=== PATIENT | male | born 1945 | race Caucasian/White ===

== ENCOUNTER 2025-08-13 21:00 | Observation (INO) ==
[2025-08-13] MEDS: OPTIRAY 320 125ml IV ONE (21:45)
[2025-08-13 21:51] LABS: Hematocrit (blood only) 43.8 % (42.0-52.0); Hemoglobin 15.2 g/dl (14.0-18.0); Immature Granulocytes # (auto) 0.09 K/uL (0.01-0.20); Immature Granulocytes % (auto) 0.5 %; Mean Corpuscular Hemoglobin 30.8 pg (25.0-34.0); Mean Corpuscular Volume 88.8 fL (80.0-100.0); Platelet Count 216 K/uL (130-400); RDW Standard Deviation 43.4 fL (36.4-46.3); Red Blood Count 4.93 M/uL (4.70-6.10); White Blood Count 18.48 K/ul (4.8-10.8)
[2025-08-13 22:09] LABS: Alanine Aminotransferase 20 U/L (7-52); Albumin Globulin Ratio 1.4 (0.9-2); Albumin Level 4.4 gm/dl (3.4-5.0); Alkaline Phosphatase 81 U/L (34-104); Anion Gap 10 (3-11); Bilirubin,Total 1.2 mg/dl (0.2-1.0); Blood Urea Nitrogen 16 mg/dl (6-23); Calcium 9.7 mg/dl (8.6-10.3); Carbon Dioxide 27 mmol/L (21-32); Chloride 101 mmol/L (98-107); Globulin 3.1 gm/dl (2.5-4.0); Glucose 119 mg/dl (70-99(Fasting)); Magnesium 1.9 mg/dl (1.7-2.4); Potassium 3.8 mmol/L (3.5-5.1); Sodium 138 mmol/L (136-145); Total Protein 7.5 gm/dl (6.0-8.3)
[2025-08-13 22:21] LABS: INR 1.2 (0.9-1.1); Partial Thromboplastin Time 28 Seconds (21-31); Prothrombin Time 12.1 Seconds (9.0-12.0)
--- NOTE | 2025-08-13 22:27 | Emergency Department Note ---
Impression & Plan Sepsis, Complicated urinary tract infection, Acute encephalopathy ED Provider Note NAME: JORDYN SAAVGE AGE: 80 SEX: M : 1945 ARRIVES VIA: Walk-In INFORMANT: Patient, family members ED PROVIDER(S): Marques Alvarado DO CHIEF COMPLAINT: confusion, weakness, stroke like symptoms HPI: This is a 80-year-old male with the PMHx of hypertension, hyperlipidemia, cerebrovascular disease, BPH with remote bladder cancer, GERD and obesity presenting to [facility] for further evaluation of strokelike symptoms. Patient is accompanied by and other family members who provide additional history. Family noted that he was weak today. They report that he was having trouble with his speech and organized thought. They report some dysarthria. They also report coordination difficulties. They are concerned for stroke. They deny fever or chills. No cough or congestion. Denies chest pain or palpitations. No shortness of breath. They deny abdominal pain, nausea and vomiting. No urinary complaints. No recent changes in bowel movements. Patient denies recent changes in medications or OTC supplements. Patient offers no other complaints, today. ADDITIONAL HISTORY OBTAINED: Per HPI Chronic Medical/Social Conditions Affecting Care: Per HPI PAST MEDICAL HISTORY: See Below PAST SURGICAL HISTORY: See Below FAMILY HISTORY: See Below SOCIAL HISTORY: See Below HOME MEDICATIONS: See Below ALLERGIES: See Below VITALS: See Below PHYSICAL EXAMINATION: GENERAL: Sitting up in bed, alert, generally ill appearing, well nourished, no distress, non-toxic EYE EXAM: normal conjunctiva. PERRL and EOM's grossly intact. OROPHARYNX: no exudate, no erythema, lips, buccal mucosa, and tongue normal and mucous membranes are moist NECK: supple, no nuchal rigidity, no adenopathy, non-tender LUNGS: Tachypnea. Clear to auscultation. Normal chest wall mechanics HEART: no murmurs, tachycardia rate, regular rhythm ABDOMEN: abdomen soft, non-tender, no masses, no rebound or guarding. BACK: Back is symmetrical on inspection and there is no deformity, no midline tenderness, no CVA tenderness. SKIN: no rashes and no bruising UPPER EXTREMITIES: upper extremities are grossly normal. LOWER EXTREMITIES: No pitting edema. NEURO EXAM: Normal sensorium, GCS 15, normal speech, no gross weakness of arms, no gross weakness of legs (slight weakness in the L, 4/5). No drift. Finger to nose intact. Gross sensation intact. MEDICAL DECISION MAKING: Differential diagnoses includes but not limited to CVA, intracranial hemorrhage, multifactorial encephalopathy, sepsis, complicated UTI, pyelonephritis, pneumonia, viral URI, electrolyte derangements, dehydration In summary, this is a 80 year old male who presented with confusion and weakness with concerns for stroke. Differential as above. Nursing notes and pertinent past medical records reviewed. Vital signs reviewed and the patient is minimally febrile and tachycardic. Patient is tachypneic. Blood pressure stable. History and presentation revealed recent manipulation with urology for screening cystoscopy for remote bladder cancer reviewed documentation from urology that showed reassuring cystoscopy. He now has a fever on arrival and vital signs consistent with sepsis. He is confused intermittently with trouble with word finding. Very minimal left-sided weakness. Family has very concerned about possible stroke and he has numerous risk factors. Physical examination revealed as above. As a result of my initial evaluation, the patient appears to be more acutely encephalopathic rather than focal deficits to suggest stroke. Family significantly concerned about this. Does have multiple risk factors for stroke and will proceed with CTA imaging. Given vital signs, I am concerned for infectious pathology. Recent cystoscopy and there would be concerns for possible infection related to this manipulation. Diagnostics interpreted by me include EKG and cardiac monitoring as listed below: -Cardiac Monitoring: An order was placed for continuous cardiac monitoring. The monitor shows a rate of 70-100s with regular rhythm. -ECG: Normal sinus rhythm at a ventricular rate of 98 bpm. First-degree AV block present. Right bundle branch block present. No significant ST segment changes to suggest STEMI. Patient completed laboratory studies and imaging. CXR independently interpreted by me reveals no evidence of focal consolidation to suggest pna. No large pneumothorax or pleural effusion. No obvious displaced rib fracture. Results independently interpreted by me are leukocytosis present. No electrolyte derangements or kidney dysfunction. Urinalysis appears infected. Negative viral swab. Procalcitonin is normal. CTH independently interpreted by me reveals no evidence of ICH. No significant hydrocephalus. No major skull fractures. CTH does not demonstrate findings to suggest an etiology of the patient's symptoms or presentation, today. CTA imaging did not reveal any acute stroke. Do feel this is likely acute encephalopathy in the setting of sepsis secondary to complicated UTI. The patient was managed with crystalloid resuscitation, antipyretics and broad-spectrum antibiotics with IV cefepime. Ultimately, the decision was made to admit the patient for sepsis secondary to complicated UTI complicated by acute encephalopathy. I discussed the case with the hospitalist service via telephone/TigerText and they are agreeable to admit the patient to their services. Based on the above, including the patient's age, coexisting illnesses, labs, imaging, and exam findings the decision to treat as an inpatient. I discussed the patient with the hospitalist team who recommended admission to their services. They received the medications, treatments, interventions indicated above and their condition remained stable. I discussed my findings with the patient and their family and they understand and agree with the treatment plan. All patient / family questions were answered to their satisfaction. Consults/Care Managements Discussions: Per MDM ER treatment provided: See above Procedures: none Critical Care: None The chart was completed utilizing [employer] Speech voice recognition software. Grammatical errors, random word insertions, pronoun errors, and incomplete sentences are an occasional consequence of this system due to software limitations, ambient noise, and hardware issues. Any formal questions or concerns about the content, text, or information contained within the body of this dictation should be directly addressed to the physician for clarification. Past Med/Surg History Problem List (Updated 08/14/25 @ 16:51 by Marques Alvarado DO) Acute encephalopathy (Acute) Complicated urinary tract infection (Acute) Sepsis (Acute) Acute metabolic encephalopathy BPH w urinary obs/LUTS Sepsis due to urinary tract infection Obesity, morbid, BMI 40.0-49.9 Rib fracture Hypoxia Restrictive lung mechanics due to neuromuscular disease Wheezing Lung crackles Nausea Gastrocnemius tear Abdominal pain, epigastric Encounter for pre-operative examination Lumbar radiculopathy, acute Idiopathic polyneuropathy Cervical myelopathy Hyperreflexia of lower extremity Sensorineural hearing loss (SNHL) of both ears Coronary arteriography abnormal Extraocular muscle weakness of right eye GERD (gastroesophageal reflux disease) Levoscoliosis Scoliosis Severe obstructive sleep apnea Restrictive lung disease inhaler daily Benign localized prostatic hyperplasia with lower urinary tract symptoms (LUTS) Spinal stenosis Arthritis Bladder cancer diagnosed 2013--sx Cerebrovascular disease Dyspnea on exertion RBBB follows with Dr. Duran PAF (paroxysmal atrial fibrillation) Hypercholesterolemia Hypertension Medical History Difficult airway for intubation Bilateral cataracts History of pneumonia Diaphragmatic hernia Prediabetes Hypercholesterolemia Cerebrovascular disease Nasal drainage Scoliosis Restrictive lung disease Lung crackles Hypertension Dyspnea on exertion RBBB (right bundle branch block) History of bladder cancer Rib fracture History of abdominal pain Belching Hearing deficit History of BPH Sleep apnea Atrial fibrillation Osteoarthritis Surgical History History of colonoscopy History of cardiac cath History of surgery History of nasal surgery S/P tooth extraction History of esophagogastroduodenoscopy (EGD) H/O cervical spine surgery History of bladder surgery S/P correction of deviated nasal septum History of carpal tunnel surgery Family History Father Prostate cancer Brother Prostate cancer Other No family history of adverse response to anesthesia Denies family history of Ovarian cancer Myocardial infarction Breast cancer Colorectal cancer Social History Smoking Status: Never smoker Second Hand Exposure: No; Do You Dip or Chew Tobacco: No; Hx Alcohol Use: Yes Alcohol type: hard liquor Alcohol Intake Frequency: 2-3 x/Week Hx Substance Use: No Preferred Language: Maltese Communication Ability: Effective Visual Impairment: No Limitations Hearing Ability: Use of Hearing Aid Textile Stylist Required: No Beliefs That Will Affect Care: None marital status: Current Living Situation: Spouse current occupational status: retired 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 How many Children do You have: 3 Feels Safe at Home: Yes Childhood Exposure to Second-Hand Smoke: No Diet: regular Diet Comment: regular caffeine: Yes during the past year weight has: decreased > 10 lbs Dental Care, Regularly: Yes Physical Activity Frequency: Does not Exercise Seatbelt Use: always Sunscreen Use: Yes Assistive Devices: Cane, CPAP, Glasses and Hearing Aid - Bilateral Allergies Allergies Allergy/AdvReac Type Severity Reaction Status Date / Time amoxicillin [From Augmentin] Allergy Intermediate Total Body Verified 07/29/25 13:22 Rash clavulanic acid Allergy Intermediate Total Body Verified 07/29/25 13:22 Rash Penicillins Allergy Intermediate Total Body Verified 07/29/25 13:22 Rash Home Meds Home Medications Medication Instructions Recorded Confirmed aspirin 81 mg tablet,delayed 81 mg PO HS 11/24/19 08/14/25 release (Adult Low Dose Aspirin) coenzyme Q10 100 mg capsule 100 mg PO BID 11/24/19 08/14/25 multivitamin (Daily Multi-Vitamin 1 tab PO QPM 06/06/20 08/14/25 tablet) cholecalciferol (vitamin D3) 25 25 mcg PO BID 06/13/21 08/14/25 mcg (1,000 unit) capsule esomeprazole magnesium 40 mg 0 mg PO QAM 01/22/23 08/14/25 capsule,delayed release (Nexium) lycopene 10 mg capsule 60 mg PO QPM 01/22/23 08/14/25 ascorbic acid (vitamin C) 1,000 mg 1 g PO HS 02/26/23 08/14/25 tablet triamcinolone acetonide 55 mcg 0 spray intranasal DAILY 07/28/24 08/14/25 nasal spray aerosol (Nasacort) albuterol sulfate 90 mcg/actuation 1 - 2 inh inhalation QID PRN 05/27/25 08/14/25 aerosol inhaler Shortness Of Breath Or Wheezing celecoxib 200 mg capsule 200 mg PO DAILY 05/27/25 08/14/25 famotidine 20 mg tablet (Pepcid) 20 mg PO HS 05/27/25 08/14/25 Previous Rx's Medication Instructions Recorded Mobility scooter #1 ea 08/01/23 ipratropium bromide 42 mcg (0.06 2 spray intranasal TID #15 mL 04/01/24 %) nasal spray Incentive Spirometer #1 ea 11/16/24 oxycodone 5 mg tablet 5 - 10 mg (1 - 2 x 5 mg) PO Q6H 11/25/24 PRN pain #30 tabs atorvastatin 10 mg tablet 10 mg PO HS #90 tabs 12/04/24 hydrochlorothiazide 12.5 mg capsule 12.5 mg PO .COMPLEX #39 caps 02/17/25 nebivolol 5 mg tablet (Bystolic) 5 mg PO QAM #90 tabs 02/17/25 CPAP Machine #1 ea 03/18/25 CPAP Supplies #1 ea 03/18/25 tirzepatide (weight loss) 2.5 2.5 mg (0.5 mL) subcut .weekly #2 06/24/25 mg/0.5 mL subcutaneous pen mL injector (Zepbound) dutasteride 0.5 mg capsule 0.5 mg PO DAILY #90 caps 08/11/25 (Avodart) Results & Data (ED) Vital Signs Vital Signs - 24 hr 08/13/25 21:03 08/13/25 21:15 08/13/25 22:20 Temperature 38.1 C H Temperature Source Temporal Artery Scan Pulse Rate 102 H 96 H Pulse Rate [Apical] 84 Pulse Rhythm [Apical] Regular Pulse Strength [Apical] Normal Respiratory Rate 18 18 Respiratory Effort / Characteristics Non-Labored Spontaneous Non-Labored Spontaneous Respiratory Depth Normal Normal Respiratory Pattern Regular Blood Pressure 126/76 Blood Pressure [Right Arm] 142/86 H Blood Pressure Mean 92 Blood Pressure Mean [Right Arm] 104 Blood Pressure Position [Right Arm] Semi-fowlers Pulse Oximetry 93 92 Oxygen Delivery Method Room Air Room Air Sepsis Recent Fever Within 48 Hours No Sepsis New/Unexplained Change in Mental Status No Sepsis Action Taken by Nursing Physician Notified 08/13/25 23:01 08/14/25 01:00 Temperature Temperature Source Pulse Rate Pulse Rate [Apical] 95 H 83 Pulse Rhythm [Apical] Regular Regular Pulse Strength [Apical] Normal Normal Respiratory Rate 18 18 Respiratory Effort / Characteristics Non-Labored Spontaneous Non-Labored Spontaneous Respiratory Depth Normal Normal Respiratory Pattern Regular Regular Blood Pressure Blood Pressure [Right Arm] 123/53 L 117/62 Blood Pressure Mean Blood Pressure Mean [Right Arm] 76 80 Blood Pressure Position [Right Arm] Semi-fowlers Semi-fowlers Pulse Oximetry 97 95 Oxygen Delivery Method Room Air Room Air Sepsis Recent Fever Within 48 Hours Sepsis New/Unexplained Change in Mental Status Sepsis Action Taken by Nursing Laboratory Data 08/14/25 04:18 08/14/25 04:18 Lab Results 08/13/25 08/13/25 08/13/25 Range/Units 21:22 21:32 21:34 WBC 18.48 H (4.8-10.8) K/ul RBC 4.93 (4.70-6.10) M/uL Hgb 15.2 (14.0-18.0) g/dl POC Hgb 15.6 (14.0-18.0) g/dl Hct 43.8 (42.0-52.0) % POC Hct 46 (42-52) % MCV 88.8 (80.0-100.0) fL MCH 30.8 (25.0-34.0) pg MCHC 34.7 (32.0-36.0) g/dL RDW Std Deviation 43.4 (36.4-46.3) fL RDW Coeff of Darin 13.4 (11.5-14.5) % Plt Count 216 (130-400) K/uL MPV 9.2 L (9.4-12.4) fL Immature Gran % (Auto) 0.5 % Neut % (Auto) 86.2 % Lymph % (Auto) 5.6 % [place] % (Auto) 7.4 % Eos % (Auto) 0.1 % Baso % (Auto) 0.2 % Neut # (Auto) 15.94 H (1.40-6.50) K/uL Lymph # (Auto) 1.03 L (1.20-3.40) K/uL [place] # (Auto) 1.37 H (0.11-0.59) K/uL Eos # (Auto) 0.01 (0.00-0.50) K/uL Baso # (Auto) 0.04 (0.00-0.20) K/uL Immature Gran # (Auto) 0.09 (0.01-0.20) K/uL PT 12.1 H (9.0-12.0) Seconds INR 1.2 H (0.9-1.1) APTT 28 (21-31) Seconds PTT Ratio 1.0 POC Sodium 137 (135-144) mmol/L Sodium 138 (136-145) mmol/L POC Potassium 3.9 (3.3-5.0) mmol/L Potassium 3.8 (3.5-5.1) mmol/L POC Chloride 102 (101-112) mmol/L Chloride 101 (98-107) mmol/L Carbon Dioxide 27 (21-32) mmol/L POC Total CO2 26 (24-31) mmol/L Anion Gap 10 (3-11) POC Anion Gap 14.0 L (16-25) mmol/L POC BUN 16 (7-18) mg/dl BUN 16 (6-23) mg/dl Creatinine 1.05 (0.6-1.4) mg/dl POC Creatinine 1.1 (0.6-1.3) mg/dl Est Cr Clr Drug Dosing Not Reportable eGFR 72.21 BUN/Creatinine Ratio 15.2 (10-20) Glucose 119 H (70-99(Fasting)) mg/dl POC Glucose (other) 119 H (70-99) mg/dl Lactate (0.4-2.0) mmol/L Calcium 9.7 (8.6-10.3) mg/dl POC Ioniz Calcium Josh 1.09 L (1.12-1.32) mmol/l Magnesium 1.9 (1.7-2.4) mg/dl Total Bilirubin 1.2 H (0.2-1.0) mg/dl AST 28 (13-39) U/L ALT 20 (7-52) U/L Alkaline Phosphatase 81 (34-104) U/L Troponin I High Sens 9.5 (0-20) pg/ml Total Protein 7.5 (6.0-8.3) gm/dl Albumin 4.4 (3.4-5.0) gm/dl Globulin 3.1 (2.5-4.0) gm/dl Albumin/Globulin Ratio 1.4 (0.9-2) Procalcitonin 0.15 (0-0.5) ng/ml Urine Color Yellow Urine Appearance Clear (Clear) Urine pH 5.0 (4.5-7.5) Ur Specific Hale 1.020 (1.000-1.030) Urine Protein Trace H (Negative) Urine Glucose (UA) Negative (Negative) Urine Ketones Trace H (Negative) Urine Blood 2+ H (Negative) Urine Nitrite Positive A (Negative) Urine Bilirubin Negative (Negative) Urine Urobilinogen Negative (Negative) Ur Leukocyte Esterase 1+ H (Negative) Urine WBC (Auto) 21-50 H (0-5) /hpf Urine RBC (Auto) 0-2 (0-2) /hpf U Hyaline Cast (Auto) 0-2 (0-2) /lpf U Epithel Cells (Auto) 0-2 (0-2) /hpf Urine Bacteria (Auto) 4+ H (None Seen) Urine Comment Adenovirus (PCR) (NotDetected) B. pertussis DNA (PCR) (NotDetected) B.parapertussis DNA PCR (NotDetected) C. pneumoniae DNA (PCR) (NotDetected) Coronavirus OC43 (PCR) (NotDetected) Coronavirus HKU1 (PCR) (NotDetected) Coronavirus 229E (PCR) (NotDetected) SARS-CoV-2 (PCR) (NotDetected) Coronavirus NL63 (PCR) (NotDetected) Human Metapneumovir PCR (NotDetected) Influenza Type A (PCR) (NotDetected) Influenza Type B (PCR) (NotDetected) M. pneumoniae (PCR) (NotDetected) Parainfluenza 1 (PCR) (NotDetected) Parainfluenza 2 (PCR) (NotDetected) Parainfluenza 3 (PCR) (NotDetected) Parainfluenza 4 (PCR) (NotDetected) RSV (PCR) (NotDetected) Entero/Rhino (PCR) (NotDetected) 08/13/25 08/13/25 Range/Units 22:51 23:04 WBC (4.8-10.8) K/ul RBC (4.70-6.10) M/uL Hgb (14.0-18.0) g/dl POC Hgb (14.0-18.0) g/dl Hct (42.0-52.0) % POC Hct (42-52) % MCV (80.0-100.0) fL MCH (25.0-34.0) pg MCHC (32.0-36.0) g/dL RDW Std Deviation (36.4-46.3) fL RDW Coeff of Darin (11.5-14.5) % Plt Count (130-400) K/uL MPV (9.4-12.4) fL Immature Gran % (Auto) % Neut % (Auto) % Lymph % (Auto) % [place] % (Auto) % Eos % (Auto) % Baso % (Auto) % Neut # (Auto) (1.40-6.50) K/uL Lymph # (Auto) (1.20-3.40) K/uL [place] # (Auto) (0.11-0.59) K/uL Eos # (Auto) (0.00-0.50) K/uL Baso # (Auto) (0.00-0.20) K/uL Immature Gran # (Auto) (0.01-0.20) K/uL PT (9.0-12.0) Seconds INR (0.9-1.1) APTT (21-31) Seconds PTT Ratio POC Sodium (135-144) mmol/L Sodium (136-145) mmol/L POC Potassium (3.3-5.0) mmol/L Potassium (3.5-5.1) mmol/L POC Chloride (101-112) mmol/L Chloride (98-107) mmol/L Carbon Dioxide (21-32) mmol/L POC Total CO2 (24-31) mmol/L Anion Gap (3-11) POC Anion Gap (16-25) mmol/L POC BUN (7-18) mg/dl BUN (6-23) mg/dl Creatinine (0.6-1.4) mg/dl POC Creatinine (0.6-1.3) mg/dl Est Cr Clr Drug Dosing eGFR BUN/Creatinine Ratio (10-20) Glucose (70-99(Fasting)) mg/dl POC Glucose (other) (70-99) mg/dl Lactate 1.6 (0.4-2.0) mmol/L Calcium (8.6-10.3) mg/dl POC Ioniz Calcium Josh (1.12-1.32) mmol/l Magnesium (1.7-2.4) mg/dl Total Bilirubin (0.2-1.0) mg/dl AST (13-39) U/L ALT (7-52) U/L Alkaline Phosphatase (34-104) U/L Troponin I High Sens (0-20) pg/ml Total Protein (6.0-8.3) gm/dl Albumin (3.4-5.0) gm/dl Globulin (2.5-4.0) gm/dl Albumin/Globulin Ratio (0.9-2) Procalcitonin (0-0.5) ng/ml Urine Color Urine Appearance (Clear) Urine pH (4.5-7.5) Ur Specific [place] (1.000-1.030) Urine Protein (Negative) Urine Glucose (UA) (Negative) Urine Ketones (Negative) Urine Blood (Negative) Urine Nitrite (Negative) Urine Bilirubin (Negative) Urine Urobilinogen (Negative) Ur Leukocyte Esterase (Negative) Urine WBC (Auto) (0-5) /hpf Urine RBC (Auto) (0-2) /hpf U Hyaline Cast (Auto) (0-2) /lpf U Epithel Cells (Auto) (0-2) /hpf Urine Bacteria (Auto) (None Seen) Urine Comment Adenovirus (PCR) Not Detected (NotDetected) B. pertussis DNA (PCR) Not Detected (NotDetected) B.parapertussis DNA PCR Not Detected (NotDetected) C. pneumoniae DNA (PCR) Not Detected (NotDetected) Coronavirus OC43 (PCR) Not Detected (NotDetected) Coronavirus HKU1 (PCR) Not Detected (NotDetected) Coronavirus 229E (PCR) Not Detected (NotDetected) SARS-CoV-2 (PCR) Not Detected (NotDetected) Coronavirus NL63 (PCR) Not Detected (NotDetected) Human Metapneumovir PCR Not Detected (NotDetected) Influenza Type A (PCR) Not Detected (NotDetected) Influenza Type B (PCR) Not Detected (NotDetected) M. pneumoniae (PCR) Not Detected (NotDetected) Parainfluenza 1 (PCR) Not Detected (NotDetected) Parainfluenza 2 (PCR) Not Detected (NotDetected) Parainfluenza 3 (PCR) Not Detected (NotDetected) Parainfluenza 4 (PCR) Not Detected (NotDetected) RSV (PCR) Not Detected (NotDetected) Entero/Rhino (PCR) Not Detected (NotDetected) Administered Medications Acetaminophen (Acetaminophen 325 Mg Tab) 650 mg PO Q4H PRN PRN Reason: Pain or Fever Stop: 09/13/25 02:12 Last Admin: 08/14/25 09:50 Dose: 650 mg Documented By: yesenia Celecoxib (Celebrex 200 Mg Cap) 200 mg PO DAILY [facility] Stop: 09/13/25 08:59 Last Admin: 08/14/25 08:20 Dose: 200 mg Documented By: yesenia Finasteride (Finasteride 5 Mg Tab) 5 mg PO DAILY [facility] Stop: 09/13/25 08:59 Last Admin: 08/14/25 08:21 Dose: 5 mg Documented By: yesenia Fluticasone Propionate (Fluticasone Propionate Na Spr 16 Gm Btl) 2 sprays VIDYA DAILY CORNELIA Stop: 09/13/25 08:59 Last Admin: 08/14/25 08:23 Dose: 2 sprays Documented By: yesenia Cefepime HCl (Maxipime 2000mg) 2,000 mg in 20 mls @ 5 mls/min IV Q12H CORNELIA; Protocol Stop: 08/24/25 07:59 Last Admin: 08/14/25 09:50 Dose: 5 mls/min Documented By: yesenia Daptomycin 500 mg/ Syringe 10 mls @ 6 mls/min IV Q24H CORNELIA; Protocol Stop: 08/24/25 09:29 Last Admin: 08/14/25 09:50 Dose: 6 mls/min Documented By: yesenia Ipratropium [place] (Ipratropium [place] Nasal [place] 0.06% 15ml) 2 sprays VIDYA TID CORNELIA Stop: 09/13/25 08:59 Last Admin: 08/14/25 08:24 Dose: 2 sprays Documented By: yesenia Metoprolol Tartrate (Metoprolol Tartrate 25 Mg Tab) 25 mg PO BID CORNELIA Stop: 09/13/25 08:59 Last Admin: 08/14/25 08:20 Dose: 25 mg Documented By: yesenia Pantoprazole Sodium (Pantoprazole 40 Mg Tab) 40 mg PO QAM [facility]IA Stop: 09/13/25 08:59 Last Admin: 08/14/25 08:20 Dose: 40 mg Documented By: yesenia Vitamin D (Cholecalciferol 25 Mcg (1000 Units) Tab) 25 mcg PO BID CORNELIA Stop: 09/13/25 08:59 Last Admin: 08/14/25 08:20 Dose: 25 mcg Documented By: yesenia Discontinued Medications Acetaminophen (Ofirmev) 1,000 mg in 100 mls @ 400 mls/hr IV NOW STA Stop: 08/13/25 22:24 Last Infusion: 08/13/25 23:56 Dose: Infused Documented By: Admin: 08/13/25 22:58 Dose: 400 mls/hr Documented By: IDD Cefepime HCl (Maxipime 2000mg) 2,000 mg in 20 mls @ 5 mls/min IV NOW STA; Protocol Stop: 08/13/25 22:20 Last Admin: 08/13/25 22:58 Dose: 5 mls/min Documented By: IDJanette Lactated Ringer's (Lr) 1,000 mls @ 80 mls/hr IV .[id number] CORNELIA Stop: 08/14/25 09:14 Last Infusion: 08/14/25 11:55 Dose: Infused Documented By: Admin: 08/14/25 04:31 Dose: 80 mls/hr Documented By: IDD Ioversol (Optiray 320 125ml) 118 ml IV ONCE ONE Stop: 08/13/25 21:46 Last Admin: 08/13/25 21:45 Dose: 118 ml Documented By: GES Discharge Plan Visit Data Chief Complaint: TIA Symptoms Stated Complaint: SLIGHT CONFUSION DIFF WALKING DOC REF ED Provider: Marques Alvarado Discharge Problem: Sepsis, Complicated urinary tract infection, Acute encephalopathy Patient Disposition: Admitted As Inpatient Condition: Serious Discharge Instructions Interventions: ED Discharge Assessment Last Done: 08/14/25 02:14
[2025-08-13] MEDS: ACETAMINOPHEN 1,000 MG/100 ML VIAL IV STA (22:58)
[2025-08-13] MEDS: CEFEPIME 2000MG 2,000 MG/20 ML SYR IV STA (22:58)
[2025-08-13 23:36] LABS: Appearance Urine Clear (Clear); Bacteria Urine Automated 4+ (None Seen); Cast Urine Automated 0-2 /lpf (0-2); Epithelial Cell Urine Auto 0-2 /hpf (0-2); Glucose Urine UA Negative (Negative); RBC Urine Automated 0-2 /hpf (0-2); WBC Urine Automated 21-50 /hpf (0-5)
--- NOTE | 2025-08-14 | CT Scan Report ---
Exam(s): CT HEAD Without Contrast EXAM: CT Head Without Intravenous Contrast CLINICAL HISTORY: Reason for exam: neuro deficit, acute stroke suspected. TECHNIQUE: Axial computed tomography images of the head/brain without intravenous contrast. CTDI is 35.79 mGy and DLP is 1193.51 mGy-cm. Automated exposure control was utilized for the study. A dose lowering technique was utilized adhering to the principles of ALARA. COMPARISON: Prior brain MRI from March 13, 2022. FINDINGS: Brain: Unremarkable. No hemorrhage. Mild nonspecific white matter changes. No edema. Ventricles: Moderate ventriculomegaly. Bones/joints: Unremarkable. No acute fracture. Soft tissues: Unremarkable. Sinuses: Moderate obstructive left maxillary sinusitis with mucoperiosteal thickening. No acute sinusitis. Mastoid air cells: Unremarkable as visualized. No mastoid effusion. IMPRESSION: No evidence of acute intracranial pathology. Chronic obstructive left maxillary sinusitis. Recommend ENT consult to evaluate for obstructing lesion. Electronically signed by: Irina Dumont MD 08/13/25 23:59 PM
--- NOTE | 2025-08-14 00:03 | CT Scan Report ---
Exam(s): CTA HEAD With Contrast IV Amt: 119cc opt i320 EXAM: CT Angiography Head With Intravenous Contrast CLINICAL HISTORY: Reason for exam: neuro deficit, acute stroke suspected. TECHNIQUE: Axial computed tomographic angiography images of the head with intravenous contrast. CTDI is 35.79 mGy and DLP is 1193.51 mGy-cm. Automated exposure control was utilized for the study. A dose lowering technique was utilized adhering to the principles of ALARA. MIP reconstructed images were created and reviewed. CONTRAST: Patient received 119cc opt i320 of IV contrast COMPARISON: No relevant prior studies available. FINDINGS: The dural venous sinuses are patent. Right internal carotid artery: No acute findings. Intracranial segment is patent with no significant stenosis. No aneurysm. Right anterior cerebral artery: Unremarkable. No occlusion or significant stenosis. No aneurysm. Right middle cerebral artery: Unremarkable. No occlusion or significant stenosis. No aneurysm. Right posterior cerebral artery: Unremarkable. No occlusion or significant stenosis. No aneurysm. Right vertebral artery: Unremarkable as visualized. Left internal carotid artery: No acute findings. Intracranial segment is patent with no significant stenosis. No aneurysm. Left anterior cerebral artery: Unremarkable. No occlusion or significant stenosis. No aneurysm. Left middle cerebral artery: Unremarkable. No occlusion or significant stenosis. No aneurysm. Left posterior cerebral artery: Unremarkable. No occlusion or significant stenosis. No aneurysm. Left vertebral artery: Unremarkable as visualized. Basilar artery: Unremarkable. No occlusion or significant stenosis. No aneurysm. IMPRESSION: Negative CT angiogram of the head. Electronically signed by: Irina Dumont MD 08/14/25 00:02 AM
--- NOTE | 2025-08-14 00:06 | CT Scan Report ---
Exam(s): CTA NECK With Contrast IV Amt: 119cc opti 320 EXAM: CT Angiography Neck With Intravenous Contrast CLINICAL HISTORY: Reason for exam: neuro deficit, acute stroke suspected. TECHNIQUE: Routine carotid CT angiography protocol was performed with intravenous contrast. NASCET criteria using the distal ICAs for comparison were used for evaluation of stenoses. CTDI is 35.79 mGy and DLP is 1193.51 mGy-cm. Automated exposure control was utilized for the study. A dose lowering technique was utilized adhering to the principles of ALARA. MIP reconstructed images were created and reviewed. CONTRAST: Patient received 119cc opti 320 of IV contrast COMPARISON: None. FINDINGS: VASCULATURE: Ectasia of the ascending aorta measured 31.3 mm in diameter. Right common carotid artery: Unremarkable. No occlusion or significant stenosis. No dissection. Right internal carotid artery: Unremarkable. Extracranial segment is patent with no occlusion or significant stenosis. No dissection. Right external carotid artery: Unremarkable. No occlusion. Right vertebral artery: Unremarkable. No occlusion or significant stenosis. No dissection. Left common carotid artery: Unremarkable. No occlusion or significant stenosis. No dissection. Left internal carotid artery: Unremarkable. Extracranial segment is patent with no occlusion or significant stenosis. No dissection. Left external carotid artery: Unremarkable. No occlusion. Left vertebral artery: Unremarkable. No occlusion or significant stenosis. No dissection. NECK: Bones/joints: Critical spinal canal stenosis at C3-4 and C4-5. No acute fracture. Soft tissues: Prominent cervical lymph nodes. Lung apices: Bronchitis with pneumonitis. CAROTID STENOSIS REFERENCE USING NASCET CRITERIA: % ICA stenosis = (1 - narrowest ICA diameter/diameter of distal cervical ICA) x 100. Mild - <50% stenosis. Moderate - 50-69% stenosis. Severe - 70-94% stenosis. Near occlusion - 95-99% stenosis. Occluded - 100% stenosis. IMPRESSION: Negative CTA neck. Critical spinal canal stenosis at C3-4 and C4-5. Recommend MRI of the cervical spine to evaluate for myelopathy. Electronically signed by: Irina Dumont MD 08/14/25 00:05 AM
[2025-08-14 00:27] LABS: Chlamydia pneumoniae PCR Not Detected (NotDetected); Coronavirus 229E PCR Not Detected (NotDetected); Coronavirus CoV-2 (COVID19)PCR Not Detected (NotDetected); Coronavirus HKU1 PCR Not Detected (NotDetected); Coronavirus NL63 PCR Not Detected (NotDetected); Coronavirus OC43PCR Not Detected (NotDetected); Human Metapneumovirus PCR Not Detected (NotDetected); Parainfluenza Virus 1 PCR Not Detected (NotDetected); Parainfluenza Virus 2 PCR Not Detected (NotDetected); Parainfluenza Virus 3 PCR Not Detected (NotDetected); Parainfluenza Virus 4 PCR Not Detected (NotDetected); Respiratory Syncytial VirusPCR Not Detected (NotDetected); Rhinovirus/Enterovirus PCR Not Detected (NotDetected)
--- NOTE | 2025-08-14 01:09 | History & Physical Report ---
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 The patient presents to the emergency department with complaint of ambulatory dysfunction, difficulty to get up and walk from sitting in chair, generalized fatigue, and concerns regarding urinary problems since he had cystoscopy 2 days ago. Upon arrival to the emergency department, patient was with his , and was found to have temperature of 38.1. Urinalysis was suggestive of infection, BioFire testing was negative, WBC was 18.48 with left shift. Imaging included CT scan of head which showed chronic left maxillary sinusitis, CTA head was negative, and CTA neck was negative however did show spinal canal stenosis at C3-4, C4-5, which patient reports having had surgery in the past. Patient underwent a cystoscopy with Dr. Cancino on 08/11, which was negative for cancer, but was consistent with known diagnosis of BPH with LUTS. Patient reports a known history of left maxillary sinusitis, and reports an upcoming procedure in that area. His is concerned, due to confusion, was that he was having a stroke. His presentation and workup is more consistent with metabolic encephalopathy secondary to urosepsis. [facility]. Sepsis due to urinary tract infection/BPH with LUTS/acute metabolic encephalopathy- Follow urine culture and sensitivity Continue cefepime 2 g IV every 12 hours, begun in the ED Patient underwent cystoscopy on 08/11/confirming diagnosis of BPH with LUTS and no signs of cancer. Continue dutasteride or substitute daily LR at 80 mL/h x 500 mL. Trying to balance the volume of intake with his significant urinary retention, and desire to not have a Carpenter catheter. Respiratory BioFire testing negative Chest x-ray negative CT scan head with known left maxillary sinusitis, with upcoming outpatient procedure per patient CTA head negative CTA neck reveals known cervical spinal canal stenosis Hypertension- Will continue aspirin Will hold hydrochlorothiazide Will change Nebivolol to metoprolol tartrate per formulary interchange GERD- Continue famotidine at bedtime, and continue pantoprazole in place of Nexium Hyperlipidemia- Continue atorvastatin Chronic pain syndrome- Acetaminophen 650 mg by mouth every 6 hours as needed for mild pain or fever Oxycodone 5 mg by mouth every 6 hours as needed for moderate pain Weight management- Patient is on tirzepatide SQ weekly as outpatient Severe LORETO- Continue CPAP 18.5 cm at bedtime History of Present Illness Chief Complaint: The patient presents to the emergency department with complaint of ambulatory dysfunction, difficulty to get up and walk from sitting in chair, generalized fatigue, and concerns regarding urinary problems since he had cystoscopy 2 days ago. Upon arrival to the emergency department, patient was with his , and was found to have temperature of 38.1. Urinalysis was suggestive of infection, BioFire testing was negative, WBC was 18.48 with left shift. Imaging included CT scan of head which showed chronic left maxillary sinusitis, CTA head was negative, and CTA neck was negative however did show spinal canal stenosis at C3-4, C4-5, which patient reports having had surgery in the past. 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 The patient presents to the emergency department with complaint of ambulatory dysfunction, difficulty to get up and walk from sitting in chair, generalized fatigue, and concerns regarding urinary problems since he had cystoscopy 2 days ago. Upon arrival to the emergency department, patient was with his , and was found to have temperature of 38.1. Urinalysis was suggestive of infection, BioFire testing was negative, WBC was 18.48 with left shift. Imaging included CT scan of head which showed chronic left maxillary sinusitis, CTA head was negative, and CTA neck was negative however did show spinal canal stenosis at C3-4, C4-5, which patient reports having had surgery in the past. Patient underwent a cystoscopy with Dr. Cancino on 08/11, which was negative for cancer, but was consistent with known diagnosis of BPH with LUTS. Patient reports a known history of left maxillary sinusitis, and reports an upcoming procedure in that area. His is concerned, due to confusion, was that he was having a stroke. His presentation and workup is more consistent with metabolic encephalopathy secondary to urosepsis. The patient was [facility]. Allergies Allergy/AdvReac Type Severity Reaction Status Date / Time amoxicillin [From Augmentin] Allergy Intermediate Total Body Verified 07/29/25 13:22 Rash clavulanic acid Allergy Intermediate Total Body Verified 07/29/25 13:22 Rash Penicillins Allergy Intermediate Total Body Verified 07/29/25 13:22 Rash Home Medications Medication Instructions Recorded Confirmed Type aspirin 81 mg tablet,delayed 81 mg PO HS 11/24/19 07/29/25 History release (Adult Low Dose Aspirin) coenzyme Q10 100 mg capsule 100 mg PO BID 11/24/19 07/29/25 History multivitamin (Daily Multi-Vitamin 1 tab PO QPM 06/06/20 07/29/25 History tablet) cholecalciferol (vitamin D3) 25 25 mcg PO BID 06/13/21 07/29/25 History mcg (1,000 unit) capsule esomeprazole magnesium 40 mg 40 mg PO QAM 01/22/23 07/29/25 History capsule,delayed release (Nexium) lycopene 10 mg capsule 60 mg PO QPM 01/22/23 07/29/25 History ascorbic acid (vitamin C) 1,000 mg 1 g PO HS 02/26/23 07/29/25 History tablet Mobility scooter #1 ea 08/01/23 07/29/25 Rx ipratropium bromide 42 mcg (0.06 2 spray intranasal TID #15 mL 04/01/24 07/29/25 Rx %) nasal spray triamcinolone acetonide 55 mcg 1 spray intranasal DAILY 07/28/24 07/29/25 History nasal spray aerosol (Nasacort) Incentive Spirometer #1 ea 11/16/24 07/29/25 Rx oxycodone 5 mg tablet 5 - 10 mg (1 - 2 x 5 mg) PO Q6H 11/25/24 07/29/25 Rx PRN pain #30 tabs atorvastatin 10 mg tablet 10 mg PO HS #90 tabs 12/04/24 07/29/25 Rx hydrochlorothiazide 12.5 mg capsule 12.5 mg PO .COMPLEX #39 caps 02/17/25 07/29/25 Rx nebivolol 5 mg tablet (Bystolic) 5 mg PO QAM #90 tabs 02/17/25 07/29/25 Rx CPAP Machine #1 ea 03/18/25 07/29/25 Rx CPAP Supplies #1 ea 03/18/25 07/29/25 Rx albuterol sulfate 90 mcg/actuation 1 - 2 inh inhalation QID PRN 05/27/25 07/29/25 History aerosol inhaler Shortness Of Breath Or Wheezing celecoxib 200 mg capsule 200 mg PO DAILY 05/27/25 07/29/25 History famotidine 20 mg tablet (Pepcid) 20 mg PO HS 05/27/25 07/29/25 History tirzepatide (weight loss) 2.5 2.5 mg (0.5 mL) subcut .weekly #2 06/24/25 07/29/25 Rx mg/0.5 mL subcutaneous pen mL injector (Zepbound) dutasteride 0.5 mg capsule 0.5 mg PO DAILY #90 caps 08/11/25 08/11/25 Rx (Avodart) Past Med/Surg History Problem List (Updated 08/14/25 @ 02:52 by Billy Douglass MD) Acute metabolic encephalopathy BPH w urinary obs/LUTS Sepsis due to urinary tract infection Obesity, morbid, BMI 40.0-49.9 Rib fracture Hypoxia Restrictive lung mechanics due to neuromuscular disease Wheezing Lung crackles Nausea Gastrocnemius tear Abdominal pain, epigastric Encounter for pre-operative examination Lumbar radiculopathy, acute Idiopathic polyneuropathy Cervical myelopathy Hyperreflexia of lower extremity Sensorineural hearing loss (SNHL) of both ears Coronary arteriography abnormal Extraocular muscle weakness of right eye GERD (gastroesophageal reflux disease) Levoscoliosis Scoliosis Severe obstructive sleep apnea Restrictive lung disease inhaler daily Benign localized prostatic hyperplasia with lower urinary tract symptoms (LUTS) Spinal stenosis Arthritis Bladder cancer diagnosed 2013--sx Cerebrovascular disease Dyspnea on exertion RBBB follows with Dr. Duran PAF (paroxysmal atrial fibrillation) Hypercholesterolemia Hypertension Medical History Difficult airway for intubation Bilateral cataracts History of pneumonia Diaphragmatic hernia Prediabetes Hypercholesterolemia Cerebrovascular disease Nasal drainage Scoliosis Restrictive lung disease Lung crackles Hypertension Dyspnea on exertion RBBB (right bundle branch block) History of bladder cancer Rib fracture History of abdominal pain Belching Hearing deficit History of BPH Sleep apnea Atrial fibrillation Osteoarthritis Surgical History History of colonoscopy History of cardiac cath History of surgery History of nasal surgery S/P tooth extraction History of esophagogastroduodenoscopy (EGD) H/O cervical spine surgery History of bladder surgery S/P correction of deviated nasal septum History of carpal tunnel surgery Family History Father Prostate cancer Brother Prostate cancer Other No family history of adverse response to anesthesia Denies family history of Ovarian cancer Myocardial infarction Breast cancer Colorectal cancer Social History Smoking Status: Never smoker Second Hand Exposure: No; Do You Dip or Chew Tobacco: No; Hx Alcohol Use: Yes Alcohol type: hard liquor Alcohol Intake Frequency: 2-3 x/Week Hx Substance Use: No Preferred Language: Bangladeshi Communication Ability: Effective Visual Impairment: No Limitations Hearing Ability: Use of Hearing Aid [place] Required: No Beliefs That Will Affect Care: None marital status: Current Living Situation: Spouse current occupational status: retired 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 How many Children do You have: 3 Feels Safe at Home: Yes Childhood Exposure to Second-Hand Smoke: No Diet: regular Diet Comment: regular caffeine: Yes during the past year weight has: decreased > 10 lbs Dental Care, Regularly: Yes Physical Activity Frequency: Does not Exercise Seatbelt Use: always Sunscreen Use: Yes Assistive Devices: Cane, CPAP, Glasses and Hearing Aid - Bilateral Review of Systems Review of Systems: The patient denies chest pain, palpitations, shortness of breath, dyspnea on exertion, cough, lower extremity swelling, sore throat, fevers, chills, sweats, nausea, vomiting, diarrhea , constipation, abdominal pain, pelvic pain, blood in urine or stool, lightheadedness, dizziness, headache, loss of conscio usness, rash, abnormal bruising or bleeding, focal weakness, numbness or tingling in arms or legs, generalized arthralgias or myalgias, back or neck pain, or night sweats. The review of systems is otherwise negative other than for that already noted above, and at least 10 systems have been reviewed. Physical Exam Physical Exam: The patient is awake, alert and oriented 3, well developed and well nourished, normocephalic and atraumatic, lying in bed and in no acute distress. HEENT--PERRL, EOMI, mucous membranes and oropharynx mildly dry. Neck--supple. No JVD. No bruits. Thyroid normal, trachea midline, no adenopathy. Heart--normal S1 and S2. No murmurs, rubs or gallops. Lungs--clear bilaterally, no respiratory distress, no accessory muscle use. Abdomen--normal bowel sounds and soft. Nontender. Nondistended. Obese Extremities--no cyanosis or clubbing. No edema. There are good distal pulses b/l. Dermatologic--normal skin turgor, normal color, no abnormal lymph nodes, no rash. Neurologic--cranial nerves II through XII grossly intact. Rheumatologic--normal range of motion. Psychiatric--normal affect. Results & Data Results & Data Vital Signs (Past 12 Hours) Vital Signs Temp Pulse Pulse Resp BP BP Pulse Ox 08/13/25 23:01 95 H 18 123/53 L 97 08/13/25 22:20 96 H 08/13/25 21:15 84 18 142/86 H 92 08/13/25 21:03 38.1 C H 102 H 18 126/76 93 O2 Del Method 08/13/25 23:01 Room Air 08/13/25 22:20 08/13/25 21:15 Room Air 08/13/25 21:03 Room Air Laboratory Results Laboratory Results WBC 18.48 K/ul (4.8-10.8) H 08/13/25 21:22 RBC 4.93 M/uL (4.70-6.10) 08/13/25 21:22 Hgb 15.2 g/dl (14.0-18.0) 08/13/25 21:22 POC Hgb 15.6 g/dl (14.0-18.0) 08/13/25 21:34 Hct 43.8 % (42.0-52.0) 08/13/25 21: POC Hct 46 % (42-52) 08/13/25 21: MCV 88.8 fL (80.0-100.0) 08/13/25 21: MCH 30.8 pg (25.0-34.0) 08/13/25 21: MCHC 34.7 g/dL (32.0-36.0) 08/13/25 21: RDW Std Deviation 43.4 fL (36.4-46.3) 08/13/25: RDW Coeff of Darin 13.4 % (11.5-14.5) 08/13/25 21: Plt Count 216 K/uL (130-400) 08/13/25 21: MPV 9.2 fL (9.4-12.4) L 08/13/25 21: Immature Gran % (Auto) 0.5 % 08/13/25 21: Neut % (Auto) 86.2 % 08/13/25 21: Lymph % (Auto) 5.6 % 08/13/25 21: [place] % (Auto) 7.4 % 08/13/25 21: Eos % (Auto) 0.1 % 08/13/25 21: Baso % (Auto) 0.2 % 08/13/25: Neut # (Auto) 15.94 K/uL (1.40-6.50) H 08/13/25 21:22 Lymph # (Auto) 1.03 K/uL (1.20-3.40) L 08/13/25 21: [place] # (Auto) 1.37 K/uL (0.11-0.59) H 08/13/25 21:22 Eos # (Auto) 0.01 K/uL (0.00-0.50) 08/13/25 21: Baso # (Auto) 0.04 K/uL (0.00-0.20) 08/13/25 21: Immature Gran # (Auto) 0.09 K/uL (0.01-0.20) 08/13/25 21: PT 12.1 Seconds (9.0-12.0) H 08/13/25 21: INR 1.2 (0.9-1.1) H 08/13/25 21:22 APTT 28 Seconds (21-31) 08/13/25 21: PTT Ratio 1.0 08/13/25 21:22 POC Sodium 137 mmol/L (135-144) 08/13/25 21:34 Sodium 138 mmol/L (136-145) 08/13/25 21:22 POC Potassium 3.9 mmol/L (3.3-5.0) 08/13/25 21:34 Potassium 3.8 mmol/L (3.5-5.1) 08/13/25 21:22 POC Chloride 102 mmol/L (101-112) 08/13/25 21:34 Chloride 101 mmol/L (98-107) 08/13/25 21:22 Carbon Dioxide 27 mmol/L (21-32) 08/13/25 21:22 POC Total CO2 26 mmol/L (24-31) 08/13/25 21:34 Anion Gap 10 (3-11) 08/13/25 21:22 POC Anion Gap 14.0 mmol/L (16-25) L 08/13/25 21:34 POC BUN 16 mg/dl (7-18) 08/13/25 21:34 BUN 16 mg/dl (6-23) 08/13/25 21:22 Creatinine 1.05 mg/dl (0.6-1.4) 08/13/25 21:22 POC Creatinine 1.1 mg/dl (0.6-1.3) 08/13/25 21:34 Est Cr Clr Drug Dosing Not Reportable 08/13/25 21:22 eGFR 72.21 08/13/25 21:22 BUN/Creatinine Ratio 15.2 (10-20) 08/13/25 21:22 Glucose 119 mg/dl (70-99(Fasting)) H 08/13/25 21:22 POC Glucose (other) 119 mg/dl (70-99) H 08/13/25 21:34 Lactate 1.6 mmol/L (0.4-2.0) 08/13/25 22:51 Calcium 9.7 mg/dl (8.6-10.3) 08/13/25 21:22 POC Ioniz Calcium Josh 1.09 mmol/l (1.12-1.32) L 08/13/25 21:34 Magnesium 1.9 mg/dl (1.7-2.4) 08/13/25 21: Total Bilirubin 1.2 mg/dl (0.2-1.0) H 08/13/25 21: AST 28 U/L (13-39) 08/13/25 21: ALT 20 U/L (7-52) 08/13/25 21:22 Alkaline Phosphatase 81 U/L (34-104) 08/13/25 21: Troponin I High Sens 9.5 pg/ml (0-20) 08/13/25 21: Total Protein 7.5 gm/dl (6.0-8.3) 08/13/25 21: Albumin 4.4 gm/dl (3.4-5.0) 08/13/25: Globulin 3.1 gm/dl (2.5-4.0) 08/13/25 21: Albumin/Globulin Ratio 1.4 (0.9-2) 08/13/25 21: Procalcitonin 0.15 ng/ml (0-0.5) 08/13/25: Urine Color Yellow 08/13/25 21: Urine Appearance Clear (Clear) 08/13/25 21: Urine pH 5.0 (4.5-7.5) 08/13/25 21: Ur Specific [place] 1.020 (1.000-1.030) 08/13/25 21: Urine Protein Trace (Negative) H 08/13/25 21: Urine Glucose (UA) Negative (Negative) 08/13/25 21: Urine Ketones Trace (Negative) H 08/13/25: Urine Blood 2+ (Negative) H 08/13/25 21: Urine Nitrite Positive (Negative) A 08/13/25 21: Urine Bilirubin Negative (Negative) 08/13/25 21: Urine Urobilinogen Negative (Negative) 08/13/25 21: Ur Leukocyte Esterase 1+ (Negative) H 08/13/25 21: Urine WBC (Auto) 21-50 /hpf (0-5) H 08/13/25 21:32 Urine RBC (Auto) 0-2 /hpf (0-2) 08/13/25 21: U Hyaline Cast (Auto) 0-2 /lpf (0-2) 08/13/25 21:32 U Epithel Cells (Auto) 0-2 /hpf (0-2) 08/13/25 21:32 Urine Bacteria (Auto) 4+ (None Seen) H 08/13/25 21:32 Urine Comment 08/13/25 21:32 Adenovirus (PCR) Not Detected (NotDetected) 08/13/25 23:04 B. pertussis DNA (PCR) Not Detected (NotDetected) 08/13/25 23:04 B.parapertussis DNA PCR Not Detected (NotDetected) 08/13/25 23:04 C. pneumoniae DNA (PCR) Not Detected (NotDetected) 08/13/25 23:04 Coronavirus OC43 (PCR) Not Detected (NotDetected) 08/13/25 23:04 Coronavirus HKU1 (PCR) Not Detected (NotDetected) 08/13/25 23:04 Coronavirus 229E (PCR) Not Detected (NotDetected) 08/13/25 23:04 SARS-CoV-2 (PCR) Not Detected (NotDetected) 08/13/25 23:04 Coronavirus NL63 (PCR) Not Detected (NotDetected) 08/13/25 23:04 Human Metapneumovir PCR Not Detected (NotDetected) 08/13/25 23:04 Influenza Type A (PCR) Not Detected (NotDetected) 08/13/25 23:04 Influenza Type B (PCR) Not Detected (NotDetected) 08/13/25 23:04 M. pneumoniae (PCR) Not Detected (NotDetected) 08/13/25 23:04 Parainfluenza 1 (PCR) Not Detected (NotDetected) 08/13/25 23:04 Parainfluenza 2 (PCR) Not Detected (NotDetected) 08/13/25 23:04 Parainfluenza 3 (PCR) Not Detected (NotDetected) 08/13/25 23:04 Parainfluenza 4 (PCR) Not Detected (NotDetected) 08/13/25 23:04 RSV (PCR) Not Detected (NotDetected) 08/13/25 23:04 Entero/Rhino (PCR) Not Detected (NotDetected) 08/13/25 23:[address] 08/13/25 21:23 Exam(s): CT HEAD Without Contrast EXAM: CT Head Without Intravenous Contrast CLINICAL HISTORY: Reason for exam: neuro deficit, acute stroke suspected. TECHNIQUE: Axial computed tomography images of the head/brain without intravenous contrast. CTDI is 35.79 mGy and DLP is 1193.51 mGy-cm. Automated exposure control was utilized for the study. A dose lowering technique was utilized adhering to the principles of ALARA. COMPARISON: Prior brain MRI from March 13, 2022. FINDINGS: Brain: Unremarkable. No hemorrhage. Mild nonspecific white matter changes. No edema. Ventricles: Moderate ventriculomegaly. Bones/joints: Unremarkable. No acute fracture. Soft tissues: Unremarkable. Sinuses: Moderate obstructive left maxillary sinusitis with mucoperiosteal thickening. No acute sinusitis. Mastoid air cells: Unremarkable as visualized. No mastoid effusion. IMPRESSION: No evidence of acute intracranial pathology. Chronic obstructive left maxillary sinusitis. Recommend ENT consult to evaluate for obstructing lesion. Electronically signed by: Irina Dumont MD 08/13/25 23:59 PM Head CTA 08/13/25 21:23 Exam(s): CTA HEAD With Contrast IV Amt: 119cc opt i320 EXAM: CT Angiography Head With Intravenous Contrast CLINICAL HISTORY: Reason for exam: neuro deficit, acute stroke suspected. TECHNIQUE: Axial computed tomographic angiography images of the head with intravenous contrast. CTDI is 35.79 mGy and DLP is 1193.51 mGy-cm. Automated exposure control was utilized for the study. A dose lowering technique was utilized adhering to the principles of ALARA. MIP reconstructed images were created and reviewed. CONTRAST: Patient received 119cc opt i320 of IV contrast COMPARISON: No relevant prior studies available. FINDINGS: The dural venous sinuses are patent. Right internal carotid artery: No acute findings. Intracranial segment is patent with no significant stenosis. No aneurysm. Right anterior cerebral artery: Unremarkable. No occlusion or significant stenosis. No aneurysm. Right middle cerebral artery: Unremarkable. No occlusion or significant stenosis. No aneurysm. Right posterior cerebral artery: Unremarkable. No occlusion or significant stenosis. No aneurysm. Right vertebral artery: Unremarkable as visualized. Left internal carotid artery: No acute findings. Intracranial segment is patent with no significant stenosis. No aneurysm. Left anterior cerebral artery: Unremarkable. No occlusion or significant stenosis. No aneurysm. Left middle cerebral artery: Unremarkable. No occlusion or significant stenosis. No aneurysm. Left posterior cerebral artery: Unremarkable. No occlusion or significant stenosis. No aneurysm. Left vertebral artery: Unremarkable as visualized. Basilar artery: Unremarkable. No occlusion or significant stenosis. No aneurysm. IMPRESSION: Negative CT angiogram of the head. Electronically signed by: Irina Dumont MD 08/14/25 00:02 AM Neck CTA 08/13/25 21:23 Exam(s): CTA NECK With Contrast IV Amt: 119cc opti 320 EXAM: CT Angiography Neck With Intravenous Contrast CLINICAL HISTORY: Reason for exam: neuro deficit, acute stroke suspected. TECHNIQUE: Routine carotid CT angiography protocol was performed with intravenous contrast. NASCET criteria using the distal ICAs for comparison were used for evaluation of stenoses. CTDI is 35.79 mGy and DLP is 1193.51 mGy-cm. Automated exposure control was utilized for the study. A dose lowering technique was utilized adhering to the principles of ALARA. MIP reconstructed images were created and reviewed. CONTRAST: Patient received 119cc opti 320 of IV contrast COMPARISON: None. FINDINGS: VASCULATURE: Ectasia of the ascending aorta measured 31.3 mm in diameter. Right common carotid artery: Unremarkable. No occlusion or significant stenosis. No dissection. Right internal carotid artery: Unremarkable. Extracranial segment is patent with no occlusion or significant stenosis. No dissection. Right external carotid artery: Unremarkable. No occlusion. Right vertebral artery: Unremarkable. No occlusion or significant stenosis. No dissection. Left common carotid artery: Unremarkable. No occlusion or significant stenosis. No dissection. Left internal carotid artery: Unremarkable. Extracranial segment is patent with no occlusion or significant stenosis. No dissection. Left external carotid artery: Unremarkable. No occlusion. Left vertebral artery: Unremarkable. No occlusion or significant stenosis. No dissection. NECK: Bones/joints: Critical spinal canal stenosis at C3-4 and C4-5. No acute fracture. Soft tissues: Prominent cervical lymph nodes. Lung apices: Bronchitis with pneumonitis. CAROTID STENOSIS REFERENCE USING NASCET CRITERIA: % ICA stenosis = (1 - narrowest ICA diameter/diameter of distal cervical ICA) x 100. Mild - <50% stenosis. Moderate - 50-69% stenosis. Severe - 70-94% stenosis. Near occlusion - 95-99% stenosis. Occluded - 100% stenosis. IMPRESSION: Negative CTA neck. Critical spinal canal stenosis at C3-4 and C4-5. Recommend MRI of the cervical spine to evaluate for myelopathy. Electronically signed by: Irina Dumont MD 08/14/25 00:05 AM Chest X-Ray 08/13/25 22:09 Exam(s): XR CXR 2 VIEWS EXAM: XR Chest, 2 Views CLINICAL HISTORY: eval for pna. TECHNIQUE: Frontal and lateral views of the chest. COMPARISON: Portable chest two views 11/18/2024 FINDINGS: Lungs: The pulmonary vasculature is equalized and more prominent from the previous examination suggesting underlying vascular congestion. No definite focal airspace consolidation, accounting for limitations with overlying prominent soft tissues of the left lung base. Pleural space: Unremarkable. No pneumothorax. No large pleural effusion. Heart: The cardiac silhouette is stable in appearance and is presumed accentuated by prominent overlying soft tissues. Mediastinum: The mediastinal contours are stable, accounting for lordotic technique. The trachea is midline. Bones/joints: Unremarkable. No acute fracture. IMPRESSION: The pulmonary vasculature is equalized and more prominent from the previous examination suggesting underlying vascular congestion. No definite focal airspace consolidation, accounting for limitations with overlying prominent soft tissues of the left lung base. No pleural effusion or pneumothorax. Electronically signed by: Michelet Weinstein MD 08/14/25 01:40 AM Code Status & VTE Plan Code Status Full code VTE Prophylaxis Plan VTE Prophylaxis will be ordered: Yes PG Care Time/CCT Total # of Minutes Spent Total Time Spent with Patient: Total time spent is greater than 50% in coordination of care (as documented) at patient's floor/unit and/or counseling patient: Coding Level of Care Code 42321 INT INP/OBS CARE 3/75MIN Diagnoses Sepsis due to urinary tract infection A41.9; N39.0 BPH w urinary obs/LUTS N40.1; N13.8 Acute metabolic encephalopathy G93.41
--- NOTE | 2025-08-14 01:41 | XRay Report ---
Exam(s): XR CXR 2 VIEWS EXAM: XR Chest, 2 Views CLINICAL HISTORY: eval for pna. TECHNIQUE: Frontal and lateral views of the chest. COMPARISON: Portable chest two views 11/18/2024 FINDINGS: Lungs: The pulmonary vasculature is equalized and more prominent from the previous examination suggesting underlying vascular congestion. No definite focal airspace consolidation, accounting for limitations with overlying prominent soft tissues of the left lung base. Pleural space: Unremarkable. No pneumothorax. No large pleural effusion. Heart: The cardiac silhouette is stable in appearance and is presumed accentuated by prominent overlying soft tissues. Mediastinum: The mediastinal contours are stable, accounting for lordotic technique. The trachea is midline. Bones/joints: Unremarkable. No acute fracture. IMPRESSION: The pulmonary vasculature is equalized and more prominent from the previous examination suggesting underlying vascular congestion. No definite focal airspace consolidation, accounting for limitations with overlying prominent soft tissues of the left lung base. No pleural effusion or pneumothorax. Electronically signed by: Michelet Weinstein MD 08/14/25 01:40 AM
[2025-08-14] MEDS ORDERED: ALBUTEROL HFA 8 GM INHALER INH PRN (02:13)
[2025-08-14] MEDS: LACTATED RINGER'S 1,000 ML IV SCH (04:31)
[2025-08-14 04:40] LABS: Hematocrit (blood only) 42.5 % (42.0-52.0); Hemoglobin 14.8 g/dl (14.0-18.0); Immature Granulocytes # (auto) 0.07 K/uL (0.01-0.20); Immature Granulocytes % (auto) 0.4 %; Mean Corpuscular Hemoglobin 30.9 pg (25.0-34.0); Mean Corpuscular Volume 88.7 fL (80.0-100.0); Platelet Count 205 K/uL (130-400); RDW Standard Deviation 43.8 fL (36.4-46.3); Red Blood Count 4.79 M/uL (4.70-6.10); White Blood Count 17.81 K/ul (4.8-10.8)
[2025-08-14 04:57] LABS: Albumin Level 4.3 gm/dl (3.4-5.0); Anion Gap 8.0 (3-11); Blood Urea Nitrogen 14.0 mg/dl (6-23); Calcium 9.4 mg/dl (8.6-10.3); Carbon Dioxide 29.0 mmol/L (21-32); Chloride 100.0 mmol/L (98-107); Creatinine Clr Calc Pharmacy 64.1 ml/min; Glucose 106.0 mg/dl (70-99(Fasting)); Potassium 3.6 mmol/L (3.5-5.1); Sodium 137.0 mmol/L (136-145)
[2025-08-14] MEDS: CHOLECALCIFEROL 25 MCG (1000 UNITS) TAB PO SCH (08:20)
[2025-08-14] MEDS: METOPROLOL TARTRATE 25 MG TAB PO SCH (08:20)
[2025-08-14] MEDS: CeleBREX 200 MG CAP PO SCH (08:20)
[2025-08-14] MEDS: FINASTERIDE 5 MG TAB PO SCH (08:21)
[2025-08-14] MEDS: FLUTICASONE PROPIONATE NA SPR 16 GM BTL NAE SCH (08:23)
[2025-08-14] MEDS: IPRATROPIUM BROMIDE NASAL SPRAY 0.06% 15ML NAE SCH (08:24)
[2025-08-14] MEDS: ACETAMINOPHEN 325 MG TAB PO PRN (09:50)
[2025-08-14] MEDS: DAPTOmycin 500 MG in SYRINGE 0 ML IV SCH (09:50)
[2025-08-14] MEDS: CEFEPIME 2000MG 2,000 MG/20 ML SYR IV SCH (09:50)
[2025-08-14] MEDS ORDERED: NON-FORMULARY MEDICATION (Lycopene 10 mg capsule) PO SCH (21:00)
[2025-08-14] MEDS: ASCORBIC ACID 500 MG TAB PO SCH (21:00)
[2025-08-14] MEDS: ASPIRIN 81 MG ECTAB PO SCH (21:00)
[2025-08-14] MEDS ORDERED: ATORVASTATIN 10 MG TAB PO SCH (21:00)
[2025-08-14] MEDS: MULTIVITAMIN TAB PO SCH (21:01)
[2025-08-14] MEDS: FAMOTIDINE 20 MG TAB PO SCH (21:01)
[2025-08-15 05:38] LABS: Hematocrit (blood only) 39.3 % (42.0-52.0); Hemoglobin 13.5 g/dl (14.0-18.0); Immature Granulocytes # (auto) 0.05 K/uL (0.01-0.20); Immature Granulocytes % (auto) 0.4 %; Mean Corpuscular Hemoglobin 30.7 pg (25.0-34.0); Mean Corpuscular Volume 89.3 fL (80.0-100.0); Platelet Count 178 K/uL (130-400); RDW Standard Deviation 44.1 fL (36.4-46.3); Red Blood Count 4.40 M/uL (4.70-6.10); White Blood Count 12.94 K/ul (4.8-10.8)
[2025-08-15 05:52] LABS: Albumin Level 3.6 gm/dl (3.4-5.0); Anion Gap 9.0 (3-11); Blood Urea Nitrogen 20.0 mg/dl (6-23); Calcium 9.2 mg/dl (8.6-10.3); Carbon Dioxide 27.0 mmol/L (21-32); Chloride 104.0 mmol/L (98-107); Creatinine Clr Calc Pharmacy 61.6 ml/min; Glucose 108.0 mg/dl (70-99(Fasting)); Magnesium 2.1 mg/dl (1.7-2.4); Potassium 3.6 mmol/L (3.5-5.1); Sodium 140.0 mmol/L (136-145)
--- NOTE | 2025-08-15 06:54 | Electrocardiogram Report ---
Test Reason : Blood Pressure : */* mmHG Vent. Rate : 98 BPM Atrial Rate : 98 BPM P-R Int : 256 ms QRS Dur : 140 ms QT Int : 372 ms P-R-T Axes : 106 -22 -22 degrees QTcB Int : 474 ms Sinus rhythm with 1st degree A-V block Right bundle branch block T wave abnormality, consider inferolateral ischemia Cannot rule out Inferior infarct Abnormal ECG No previous ECGs available Confirmed by Don Payne [id number] on 08/15/2025 6:54:31 AM Referred By: NO PCP Confirmed By: Don Payne
[2025-08-15 08:21] VITALS: RESP 18
--- NOTE | 2025-08-15 10:14 | Magnetic Resonance Report ---
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 TECHNIQUE: MRI of the cervical spine without contrast. COMPARISON: None. FINDINGS: Straightening of cervical curvature. No significant listhesis. Vertebral body heights are maintained without acute compression deformity. Modic type II degenerative endplate changes at C7-T1. Mild Modic type I degenerative endplate changes at C3-4 and C4-5. The cervical spinal cord is normal in caliber and signal intensity.. the soft tissues of the neck Are unremarkable. The included posterior fossa is unremarkable. At C2-3: Central disc protrusion indents the ventral thecal sac and mildly narrows the central canal. Mild degenerative disc disease. The neuroforamina are patent. At C3-4: severe degenerative disc disease. Posterior Disc osteophyte complex results in severe central canal stenosis with near complete effacement of the CSF space. Mid sagittal AP diameter of the canal measuring 0.6 cm. Severe bilateral neural foraminal stenosis. At C4-5: Moderate degenerative disc disease. Posterior disc osteophyte complex moderately narrows the central canal. severe left and moderate right neural foraminal stenosis. At C5-6: severe degenerative disc disease. Posterior disc osteophyte complex moderately narrows the central canal. Severe bilateral neural foraminal stenosis. At C6-7: Severe degenerative disc disease. Posterior disc osteophyte complex moderately narrows the central canal. Severe bilateral neuroforaminal stenosis. At C7-T1: Severe degenerative disc disease. Posterior disc osteophyte complex mildly narrows the central canal. Severe bilateral neuroforaminal stenosis. 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 Central canal stenosis is most pronounced and severe at C3-4 with near complete effacement of the CSF space and mild Cervical spinal cord compression. Mid sagittal AP diam of the canal measuring 0.6 cm. * Severe multilevel bilateral neuroforaminal stenosis is most pronounced at C3-4 and related to facet and uncovertebral arthrosis. * Multilevel degenerative changes are detailed above by level with varying degrees of canal and foraminal stenosis. Electronically signed by Epifanio Guo 08-15-2025 10:14 AM
[2025-08-15 11:54] VITALS: BP 120/71; TEMP 98.6; O2SAT 93
--- NOTE | 2025-08-15 13:06 | Discharge Summary ---
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 He had just undergone a cystoscopy by Dr Steven Cancino with [facility] on 08/11/25. The cystoscope did not show any bladder cancer recurrence or other abnormality. Presented with ambulatory dysfunction, weakness, fatigue, and mild confusion. Upon ER presentation he had an elevated temperature of 38.1 degrees. CBC showed leukocytosis of 18.4. #sepsis 2nd to UTI / complicated UTI - -patient was given IV cefepime starting in the ER and this was continued on the medical floors -he clinically improved with normalization of his mental status, resolution of his fever, improvement in his WBC count, and improvement in his weakness -urine culture grew e.coli with sensitivities pending on day of discharge -I voiced to Dr Chinchilla that given the recent cystoscopy he was at higher risk of resistant e.coli and encouraged him to stay 1 additional day so that we had final sensitivities on the e.coli -the patient declined staying in the hospital, asking to be released on 08/15/25 -patient did state that if the e.coli showed considerable resistance and if he needed IV antibiotics he would be willing to do this as an outpatient -discharged Dr Chinchilla on omnicef 300mg BID x 7 additional days -he will need close f/u with his PCP to ensure he continues to improve and to have f/u on the final urine cx result -blood cultures were negative while hospitalized #acute metabolic encephalopathy - -2nd to e.coli UTI -confusion resolved with Rx of his UTI -patient's presentation was not consistent with TIA or stroke event; CT head was neg for acute findings, and CTA head/neck did not show aneurysm, stenosis, etc. #severe cervical spine stenosis - -patient has been following with ortho-spine in [place], [place] -he is aware that his c-spine stenosis is severe and starting to cause myelopathy, LE weakness, etc. -incidentally on his CTA neck the radiologist commented on how severe the c- spine stenosis appeared -thus, during this brief stay, he was agreeable to MRI of the cervical spine -MRI showed: * Severe multilevel degenerative disc disease resulting in multilevel central canal stenosis. Central canal stenosis is most pronounced and severe at C3-4 with near complete effacement of the CSF space and mild Cervical spinal cord compression. Mid sagittal AP diam of the canal measuring 0.6 cm. * Severe multilevel bilateral neuroforaminal stenosis is most pronounced at C3-4 and related to facet and uncovertebral arthrosis. * Multilevel degenerative changes are detailed above by level with varying degrees of canal and foraminal stenosis. -I placed the MRI on a CD for Dr Chinchilla and urged him to f/u with his ortho-museum informatics specialist JOE -Dr Chinchilla understands the severity/gravity of his cervical spine disease and the ramifications of not intervening on the stenosis -given the pt's acute on chronic weakness we ambulated Dr Chinchilla around the medical unit and he did well enough to return home with family -ideally we would have had PT do a formal assessment however the patient requested discharge early on 08/15/25 -encouraged him to use a walker on a regular basis given his ambulatory dysfunction Notes For Next Care Provider 1. f/u on final urine culture result (sensitivities of the e.coli) 2. 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 The patient presents to the emergency department with complaint of ambulatory dysfunction, difficulty to get up and walk from sitting in chair, generalized fatigue, and concerns regarding urinary problems since he had cystoscopy 2 days ago. Upon arrival to the emergency department, patient was with his , and was found to have temperature of 38.1. Urinalysis was suggestive of infection, BioFire testing was negative, WBC was 18.48 with left shift. Imaging included CT scan of head which showed chronic left maxillary sinusitis, CTA head was negative, and CTA neck was negative however did show spinal canal stenosis at C3-4, C4-5, which patient reports having had surgery in the past. Patient underwent a cystoscopy with Dr. Cancino on 08/11, which was negative for cancer, but was consistent with known diagnosis of BPH with LUTS. Patient reports a known history of left maxillary sinusitis, and reports an upcoming procedure in that area. His is concerned, due to confusion, was that he was having a stroke. His presentation and workup is more consistent with metabolic encephalopathy secondary to urosepsis. The patient was [facility] Discharge Exam gen - NAD, pleasant neck - restricted ROM; no JVD mouth - MMM heart - RRR, s1 s2, no obvious murmur lungs - CTA b/l abd - soft NT BS+ ND ext - no edema, pulses 2+ b/l neuro - DTRs brisk (3-4+ at minimum) patellar reflexes b/l; no clonus; strength of b/l legs and arms 4-5/5 all muscle groups psych - a/o x 3 Discharge Plan Discharge Items Patient Disposition: Home - Self-Care Reason For Visit: SEPSIS DUE TO UTI Discharge Diagnosis: 1. E. coli urinary tract infection - improving 2. sepsis - due to #1 - resolved 3. severe cervical spine stenosis at C3-C4 - please follow-up with your spine surgeon joe 4. confusion - due to #1 - resolved Activity: As commented below Activity Comment: gradually increase activity as tolerated over the next few days Non-emergency contact: Primary Care Provider and Surgeon Call non-emergency contact if: you have any medication questions, your symptoms worsen and you have a fever Follow-up/Referrals: Ned Fleming, [Primary Care Provider] - 08/25/25 9:20 am (within 1 week) Diet: Heart Healthy Addtl Attending Provider Instructions: Dr Chinchilla, You were hospitalized due to urinary tract infection. The urinary infection caused weakness and confusion. Due to the confusion CT scans of the head were taken and no stroke was found. CTA scans of the head & neck showed normal blood flow in all arteries of the head/neck. No aneurysm was found either. The CT of the neck incidentally saw severe spinal stenosis of your cervical spine at C3-C4. The MRI of your cervical spine indeed confirms/shows severe stenosis at C3-C4. Urine culture is growing e.coli. Blood cultures were negative during the hospitalization. You improved with IV cefepime antibiotic. Recommendations - 1. antibiotics - -cefdinir 300mg twice daily x 7 days, first dose TONIGHT. -most common side effect - diarrhea. -we will have the full sensitivity panel back on the e.coli tomorrow. There is a chance we may have to change your antibiotic. We will call you if the antibiotic needs to be switched. -I will let Dr Cancino know about your hospital stay. 2. cervical spine stenosis - please contact your surgeon at [facility] to discuss the MRI results JOE. The severe C3-C4 stenosis is likely impacting your walking as well as function in your arms. Please bring the CD with your MRI images to any future appointment with your surgeon. I would recommend using your walker on a regular basis given the severity of your neck problem and weakness. Follow-up - -see your family doctor within 1 week Return to [facility] if - -you have fevers over 100 degrees -you develop severe diarrhea (3 or more liquid stools in 24 hours) -you have inability to void -you develop abdominal pains -you have recurrent falls or extreme weakness of your arms/legs -any other concerns It was our pleasure to care for you! -Chaim Duval Pending Studies at Discharge: Yes Studies:: Urine culture (final); blood cultures (thus far negative) Stand-Alone Forms: My [facility], Smoking Cessation Medications and DC Order Prescriptions: Continued atorvastatin 10 mg tablet 10 mg PO HS Qty: 90 3RF nebivolol [Bystolic] 5 mg tablet 5 mg PO QAM Qty: 90 3RF (DME) CPAP Machine Misc See Rx Instructions .Route Qty: 1 0RF Rx Instructions: As directed (DME) CPAP Supplies Misc See Rx Instructions .Route Qty: 1 0RF Rx Instructions: As directed aspirin [Adult Low Dose Aspirin] 81 mg tablet,delayed release (DR/EC) 81 mg PO HS Patient Comments: 08/14- otc unable to verify coenzyme Q10 100 mg capsule 100 mg PO BID Patient Comments: 08/14- otc unable to verify cholecalciferol (vitamin D3) 25 mcg (1,000 unit) capsule 25 mcg PO BID Patient Comments: 08/14- otc unable to verify lycopene 10 mg capsule 60 mg PO QPM Patient Comments: 08/14- otc unable to verify multivitamin [Daily Multi-Vitamin] Tablet 1 tab PO QPM Patient Comments: 08/14- otc unable to verify ascorbic acid (vitamin C) 1,000 mg tablet 1 g PO HS Patient Comments: 08/14- otc unable to verify triamcinolone acetonide [Nasacort] 55 mcg aerosol,spray 0 spray intranasal DAILY Patient Comments: 08/14- otc unable to verify Rx Instructions: administer into each nostril (DME) Mobility scooter See Rx Instructions .Route .MEDSUPPLY Qty: 1 0RF Rx Instructions: As directed oxycodone 5 mg tablet 5 - 10 mg PO Q6H PRN (Reason: pain) Qty: 30 0RF Patient Comments: 08/14- last filled 11/26 5 day supply #30 dutasteride [Avodart] 0.5 mg capsule 0.5 mg PO DAILY Qty: 90 3RF (DME) Incentive Spirometer Misc See Rx Instructions .Route Qty: 1 0RF Rx Instructions: As directed ipratropium bromide 42 mcg (0.06 %) spray,non-aerosol 2 spray intranasal TID Qty: 15 3RF Patient Comments: 08/14- no fill history unable to verify celecoxib 200 mg capsule 200 mg PO DAILY Rx Instructions: TAKE 1 CAPSULE DAILY famotidine [Pepcid] 20 mg tablet 20 mg PO HS albuterol sulfate 90 mcg/actuation HFA aerosol inhaler 1 - 2 inh inhalation QID PRN (Reason: Shortness Of Breath Or Wheezing) Held hydrochlorothiazide 12.5 mg capsule 12.5 mg PO .COMPLEX Qty: 39 3RF Hold Instructions: Resume on 08/18/25. Rx Instructions: 12.5 mg PO MON; WED; FRI; No Action esomeprazole magnesium [Nexium] 40 mg capsule,delayed release(DR/EC) 40 mg PO QAM cefdinir 300 mg capsule 300 mg PO BID 7 Days Qty: 14 0RF Discharge Orders: Discharge Order (Routine); Ordered 08/15/25 Ordered By: Chaim Duval Admission Data Admit Date/Time: 08/14/25 01:09 Attending Provider: Chaim Duval Admit Provider: Billy Douglass Primary Care Provider: Ned Fleming Other Providers: Billy Douglass Other Interventions: Discharge Summary Assessment (RN) Last Done: 08/15/25 13:07 Hospital Stay Data Consultations 08/15/25 12:43 Burn CD for patient Stat Diagnostic Imagining Performed Head CT 08/13/25 21:23 Exam(s): CT HEAD Without Contrast EXAM: CT Head Without Intravenous Contrast CLINICAL HISTORY: Reason for exam: neuro deficit, acute stroke suspected. TECHNIQUE: Axial computed tomography images of the head/brain without intravenous contrast. CTDI is 35.79 mGy and DLP is 1193.51 mGy-cm. Automated exposure control was utilized for the study. A dose lowering technique was utilized adhering to the principles of ALARA. COMPARISON: Prior brain MRI from March 13, 2022. FINDINGS: Brain: Unremarkable. No hemorrhage. Mild nonspecific white matter changes. No edema. Ventricles: Moderate ventriculomegaly. Bones/joints: Unremarkable. No acute fracture. Soft tissues: Unremarkable. Sinuses: Moderate obstructive left maxillary sinusitis with mucoperiosteal thickening. No acute sinusitis. Mastoid air cells: Unremarkable as visualized. No mastoid effusion. IMPRESSION: No evidence of acute intracranial pathology. Chronic obstructive left maxillary sinusitis. Recommend ENT consult to evaluate for obstructing lesion. Electronically signed by: Irina Dumont MD 08/13/25 23:59 PM Head CTA 08/13/25 21:23 Exam(s): CTA HEAD With Contrast IV Amt: 119cc opt i320 EXAM: CT Angiography Head With Intravenous Contrast CLINICAL HISTORY: Reason for exam: neuro deficit, acute stroke suspected. TECHNIQUE: Axial computed tomographic angiography images of the head with intravenous contrast. CTDI is 35.79 mGy and DLP is 1193.51 mGy-cm. Automated exposure control was utilized for the study. A dose lowering technique was utilized adhering to the principles of ALARA. MIP reconstructed images were created and reviewed. CONTRAST: Patient received 119cc opt i320 of IV contrast COMPARISON: No relevant prior studies available. FINDINGS: The dural venous sinuses are patent. Right internal carotid artery: No acute findings. Intracranial segment is patent with no significant stenosis. No aneurysm. Right anterior cerebral artery: Unremarkable. No occlusion or significant stenosis. No aneurysm. Right middle cerebral artery: Unremarkable. No occlusion or significant stenosis. No aneurysm. Right posterior cerebral artery: Unremarkable. No occlusion or significant stenosis. No aneurysm. Right vertebral artery: Unremarkable as visualized. Left internal carotid artery: No acute findings. Intracranial segment is patent with no significant stenosis. No aneurysm. Left anterior cerebral artery: Unremarkable. No occlusion or significant stenosis. No aneurysm. Left middle cerebral artery: Unremarkable. No occlusion or significant stenosis. No aneurysm. Left posterior cerebral artery: Unremarkable. No occlusion or significant stenosis. No aneurysm. Left vertebral artery: Unremarkable as visualized. Basilar artery: Unremarkable. No occlusion or significant stenosis. No aneurysm. IMPRESSION: Negative CT angiogram of the head. Electronically signed by: Irina Dumont MD 08/14/25 00:02 AM Neck CTA 08/13/25 21:23 Exam(s): CTA NECK With Contrast IV Amt: 119cc opti 320 EXAM: CT Angiography Neck With Intravenous Contrast CLINICAL HISTORY: Reason for exam: neuro deficit, acute stroke suspected. TECHNIQUE: Routine carotid CT angiography protocol was performed with intravenous contrast. NASCET criteria using the distal ICAs for comparison were used for evaluation of stenoses. CTDI is 35.79 mGy and DLP is 1193.51 mGy-cm. Automated exposure control was utilized for the study. A dose lowering technique was utilized adhering to the principles of ALARA. MIP reconstructed images were created and reviewed. CONTRAST: Patient received 119cc opti 320 of IV contrast COMPARISON: None. FINDINGS: VASCULATURE: Ectasia of the ascending aorta measured 31.3 mm in diameter. Right common carotid artery: Unremarkable. No occlusion or significant stenosis. No dissection. Right internal carotid artery: Unremarkable. Extracranial segment is patent with no occlusion or significant stenosis. No dissection. Right external carotid artery: Unremarkable. No occlusion. Right vertebral artery: Unremarkable. No occlusion or significant stenosis. No dissection. Left common carotid artery: Unremarkable. No occlusion or significant stenosis. No dissection. Left internal carotid artery: Unremarkable. Extracranial segment is patent with no occlusion or significant stenosis. No dissection. Left external carotid artery: Unremarkable. No occlusion. Left vertebral artery: Unremarkable. No occlusion or significant stenosis. No dissection. NECK: Bones/joints: Critical spinal canal stenosis at C3-4 and C4-5. No acute fracture. Soft tissues: Prominent cervical lymph nodes. Lung apices: Bronchitis with pneumonitis. CAROTID STENOSIS REFERENCE USING NASCET CRITERIA: % ICA stenosis = (1 - narrowest ICA diameter/diameter of distal cervical ICA) x 100. Mild - <50% stenosis. Moderate - 50-69% stenosis. Severe - 70-94% stenosis. Near occlusion - 95-99% stenosis. Occluded - 100% stenosis. IMPRESSION: Negative CTA neck. Critical spinal canal stenosis at C3-4 and C4-5. Recommend MRI of the cervical spine to evaluate for myelopathy. Electronically signed by: Irina Dumont MD 08/14/25 00:05 AM Chest X-Ray 08/13/25 22:09 Exam(s): XR CXR 2 VIEWS EXAM: XR Chest, 2 Views CLINICAL HISTORY: eval for pna. TECHNIQUE: Frontal and lateral views of the chest. COMPARISON: Portable chest two views 11/18/2024 FINDINGS: Lungs: The pulmonary vasculature is equalized and more prominent from the previous examination suggesting underlying vascular congestion. No definite focal airspace consolidation, accounting for limitations with overlying prominent soft tissues of the left lung base. Pleural space: Unremarkable. No pneumothorax. No large pleural effusion. Heart: The cardiac silhouette is stable in appearance and is presumed accentuated by prominent overlying soft tissues. Mediastinum: The mediastinal contours are stable, accounting for lordotic technique. The trachea is midline. Bones/joints: Unremarkable. No acute fracture. IMPRESSION: The pulmonary vasculature is equalized and more prominent from the previous examination suggesting underlying vascular congestion. No definite focal airspace consolidation, accounting for limitations with overlying prominent soft tissues of the left lung base. No pleural effusion or pneumothorax. Electronically signed by: Michelet Weinstein MD 08/14/25 01:40 AM Cervical Spine MRI 08/15/25 09:30 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 TECHNIQUE: MRI of the cervical spine without contrast. COMPARISON: None. FINDINGS: Straightening of cervical curvature. No significant listhesis. Vertebral body heights are maintained without acute compression deformity. Modic type II degenerative endplate changes at C7-T1. Mild Modic type I degenerative endplate changes at C3-4 and C4-5. The cervical spinal cord is normal in caliber and signal intensity.. the soft tissues of the neck Are unremarkable. The included posterior fossa is unremarkable. At C2-3: Central disc protrusion indents the ventral thecal sac and mildly narrows the central canal. Mild degenerative disc disease. The neuroforamina are patent. At C3-4: severe degenerative disc disease. Posterior Disc osteophyte complex results in severe central canal stenosis with near complete effacement of the CSF space. Mid sagittal AP diameter of the canal measuring 0.6 cm. Severe bilateral neural foraminal stenosis. At C4-5: Moderate degenerative disc disease. Posterior disc osteophyte complex moderately narrows the central canal. severe left and moderate right neural foraminal stenosis. At C5-6: severe degenerative disc disease. Posterior disc osteophyte complex moderately narrows the central canal. Severe bilateral neural foraminal stenosis. At C6-7: Severe degenerative disc disease. Posterior disc osteophyte complex moderately narrows the central canal. Severe bilateral neuroforaminal stenosis. At C7-T1: Severe degenerative disc disease. Posterior disc osteophyte complex mildly narrows the central canal. Severe bilateral neuroforaminal stenosis. 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 Central canal stenosis is most pronounced and severe at C3-4 with near complete effacement of the CSF space and mild Cervical spinal cord compression. Mid sagittal AP diam of the canal measuring 0.6 cm. * Severe multilevel bilateral neuroforaminal stenosis is most pronounced at C3-4 and related to facet and uncovertebral arthrosis. * Multilevel degenerative changes are detailed above by level with varying degrees of canal and foraminal stenosis. Electronically signed by Epifanio Guo 08-15-2025 10:14 AM Pending Results Patient Have Any Pending Studies at Discharge: Yes Discharge Instructions Given to Patient (Per Discharging Provider) Dr Chinchilla, You were hospitalized due to urinary tract infection. The urinary infection caused weakness and confusion. Due to the confusion CT scans of the head were taken and no stroke was found. CTA scans of the head & neck showed normal blood flow in all arteries of the head/neck. No aneurysm was found either. The CT of the neck incidentally saw severe spinal stenosis of your cervical spine at C3-C4. The MRI of your cervical spine indeed confirms/shows severe stenosis at C3-C4. Urine culture is growing e.coli. Blood cultures were negative during the hospitalization. You improved with IV cefepime antibiotic. Recommendations - 1. antibiotics - -cefdinir 300mg twice daily x 7 days, first dose TONIGHT. -most common side effect - diarrhea. -we will have the full sensitivity panel back on the e.coli tomorrow. There is a chance we may have to change your antibiotic. We will call you if the antibiotic needs to be switched. -I will let Dr Cancino know about your hospital stay. 2. cervical spine stenosis - please contact your surgeon at [facility] to discuss the MRI results JOE. The severe C3-C4 stenosis is likely impacting your walking as well as function in your arms. Please bring the CD with your MRI images to any future appointment with your surgeon. I would recommend using your walker on a regular basis given the severity of your neck problem and weakness. Follow-up - -see your family doctor within 1 week Return to [facility] if - -you have fevers over 100 degrees -you develop severe diarrhea (3 or more liquid stools in 24 hours) -you have inability to void -you develop abdominal pains -you have recurrent falls or extreme weakness of your arms/legs -any other concerns It was our pleasure to care for you! -Chaim Duval Total Time Total Time Spent Total Time Spent (In Minutes): 45 Total Time Includes: Examination of the Patient, Discharge Planning, Medication Reconciliation and Communication With Other Providers Coding Level of Care Code 15158 INP/OBS DISCH >30 MIN Diagnoses Sepsis due to urinary tract infection A41.9; N39.0 BPH w urinary obs/LUTS N40.1; N13.8 Acute metabolic encephalopathy G93.41 Cervical spinal stenosis M48.02
[2025-08-15 13:08] VITALS: PULSE 65
== END 2025-08-15 14:10 | disposition home or self-care (01) ==
LOC: SUATTDRO → ED 21:00 → EDINP 21:00 → SUATTDRO 08-14 01:09 → 2N 08-14 02:14